=== PATIENT | female | born 1970 | race Caucasian/White ===

== ENCOUNTER 2019-10-17 12:37 | Emergency (ER) | payer SELFPAY ==
[2019-10-17 12:37] VITALS: BP 178/108; PULSE 113; RESP 20; TEMP 37.1; O2SAT 100
[2019-10-17 12:38] VITALS: BMI 33.4
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
--- NOTE | 2019-10-17 12:46 | PC.NURSE ---
Patient states she has pain in lower right sided back that radiates down right leg
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
[2019-10-17 13:45] VITALS: BP 153/106; PULSE 98; RESP 18; O2SAT 99
== END 2019-10-17 13:45 | disposition home or self-care (01) ==
LOC: ER 13:30
PROVIDERS: Emergency Provider Physician Assistant
DX: S39.012A Strain of muscle, fascia and tendon of lower back, initial encounter (principal); V89.2XXA Person injured in unspecified motor-vehicle accident, traffic, initial encounter; Y92.410 Unspecified street and highway as the place of occurrence of the external cause
CPT/HCPCS: 72100; 73502; 99281; 99282

== ENCOUNTER → 2021-05-04 09:37 | Outpatient (BNVA) | payer BC, SELFPAY | PROVIDERS: PCP Nurse Practitioner Family; Visit Provider Family Medicine Adult Medicine | DX: R11.2 Nausea with vomiting, unspecified (principal); E11.9 Type 2 diabetes mellitus without complications; I12.9 Hypertensive chronic kidney disease with stage 1 through stage 4 chronic kidney disease, or unspecified chronic kidney disease; N18.30 Chronic kidney disease, stage 3 unspecified; Z11.52 Encounter for screening for COVID-19; E89.0 Postprocedural hypothyroidism; E78.5 Hyperlipidemia, unspecified; K21.9 Gastro-esophageal reflux disease without esophagitis; Z68.23 Body mass index [BMI] 23.0-23.9, adult; Z71.89 Other specified counseling; Z20.822 Contact with and (suspected) exposure to COVID-19 | CPT/HCPCS: 80053; 80061; 82150; 83036; 83690; 84443; 85025; 87635 ==

== ENCOUNTER → 2021-06-29 10:17 | Outpatient (BNVA) | payer BC, SELFPAY | PROVIDERS: PCP Nurse Practitioner Family; Referring Provider Family Medicine Adult Medicine; Visit Provider Orthopaedic Surgery | DX: M54.2 Cervicalgia (principal); M54.50 Low back pain, unspecified | CPT/HCPCS: 72050; 72110 ==

== ENCOUNTER → 2022-02-23 08:35 | Outpatient (BNVA) | payer BC, SELFPAY | PROVIDERS: PCP Family Medicine Adult Medicine; Visit Provider Family Medicine Adult Medicine | DX: N18.30 Chronic kidney disease, stage 3 unspecified (principal); E89.0 Postprocedural hypothyroidism; I10 Essential (primary) hypertension; E11.9 Type 2 diabetes mellitus without complications; Z13.6 Encounter for screening for cardiovascular disorders; F41.9 Anxiety disorder, unspecified; F32.9 Major depressive disorder, single episode, unspecified; M54.41 Lumbago with sciatica, right side; M54.42 Lumbago with sciatica, left side; G89.29 Other chronic pain; J30.9 Allergic rhinitis, unspecified; L02.92 Furuncle, unspecified; K21.9 Gastro-esophageal reflux disease without esophagitis | CPT/HCPCS: 80053; 80061; 82627; 83036; 85025 ==

== ENCOUNTER 2022-04-22 12:55 | Outpatient (CLI) | payer BC, SELFPAY ==
--- NOTE | 2022-04-22 13:19 | US_ITS ---
WS: [id number] RENAL ULTRASOUND HISTORY: STAGE 3A CHRONIC KIDNEY DZ COMPARISON: None available. TECHNIQUE: 2-D and color Doppler imaging of the kidney submitted. Right kidney: 9.2 cm x 3.9 cm x 4.3 cm. Normal echogenicity with no hydronephrosis or mass. Left kidney: 9.1 cm x 3.8 cm x 4.0 cm. Normal size kidney. Mild cortical thinning upper pole of the LEFT kidney. The cortex measures 5 mm. N o hydronephrosis or mass. Aorta: Atherosclerosis. No aneurysm. Urinary Bladder: Nondistended urinary bladder. Bladder is very poorly visualized. Intraluminal thromb us or nodule not be evident. US/US renal BI* [id number] IMPRESSION: 1. No hydronephrosis. 2. Mild cortical thinning upper pole LEFT kidney. 3. Urinary bladder is not distended. Poorly visualized bladder.
[2022-04-22 14:10] LABS: Basophils % 0.5 %; Eosinophils % 0.3 %; Hematocrit 42.1 % (37.0-47.0); Hemoglobin 13.2 g/dL (11.5-15.3); Lymphocytes # 1.3 10^3/uL (0.8-4.8); Lymphocytes % 20.1 %; Mean Corpuscular HGB Conc 31.4 g/dL (30.0-36.0); Mean Corpuscular Hemoglobin 27.1 pg (28.0-34.0); Mean Corpuscular Volume 86.4 fl (81-99); Mean Platelet Volume 11.9 fL (7.4-10.4); Monocytes # 0.3 10^3/uL (0.2-0.9); Monocytes % 5.1 %; Neutrophils # 4.67 10^3/uL (1.8-7.7); Neutrophils % 73.8 %; Nucleated Red Blood Cells % 0 %; Platelet Count 247 10^3/cmm (130-400); Red Blood Count 4.87 10^6/uL (4.1-5.3); Red Cell Distribution Width 12.8 % (12.1-15.1); White Blood Count 6.3 10^3/uL (4.0-10.0)
[2022-04-22 14:30] LABS: Albumin Level 4.4 g/dL (3.5-5.2); Anion Gap 15.2 (5-19); Blood Urea Nitrogen 20 mg/dL (6-20); Calcium 10.1 mg/dL (8.5-10.5); Carbon Dioxide 29 mmol/L (22-29); Chloride 99 mmol/L (98-107); Glomerular Filtration Rate 58.2 mL/min (90-130); Glucose 96 mg/dL (65-115); Phosphorus 3.3 mg/dL (2.5-4.5); Potassium 4.2 mmol/L (3.5-5.1); Sodium 139 mmol/L (136-145)
[2022-04-22 14:39] LABS: Creatinine Urine, Random 100 mg/dL (28-217)
[2022-04-22 14:55] LABS: Microalbum Creatinine Ratio Ur 710 mg/dL (0-20); Microalbumin Random Urine 71 ug/dL (0-20)
[2022-04-22 15:17] LABS: Parathyroid Hormone 46.4 pg/mL (15-65)
== END 2022-04-22 12:56 | disposition home or self-care (01) ==
PROVIDERS: PCP Family Medicine Adult Medicine; Visit Provider Internal Medicine Nephrology
DX: N18.31 Chronic kidney disease, stage 3a (principal)
CPT/HCPCS: 76770; 80069; 82044; 82310; 83970; 85025

== ENCOUNTER 2022-06-12 11:38 | Emergency (ER) | payer BC, SELFPAY ==
[2022-06-12 11:44] VITALS: BMI 24.3
[2022-06-12 11:50] VITALS: BP 155/96; PULSE 104; RESP 17; TEMP 36.4; O2SAT 100
[2022-06-12] MEDS: ondansetron 2 mg/ML SDV 2 mL 8 MG IVP (12:12)
[2022-06-12] MEDS: sodium chloride 0.9% 1,000 ML 999 ML IV (12:13)
--- NOTE | 2022-06-12 12:20 | CTR_ITS ---
PROCEDURE INFORMATION: Exam: CT Abdomen And Pelvis With Contrast Exam date and time: 06/12/2022 12:41 PM Age: 52 years old Clinical indication: Abdominal pain; Localized; Left lower quadrant (llq); Additional info: Llq abdominal pain, TECHNIQUE: Imaging protocol: Computed tomography of the abdomen and pelvis with contrast. Radiation optimization: All CT scans at this facility use at least one of these dose optimization techniques: automated exposure control; mA and/or kV adjustment per patient size (includes targeted exams where dose is matched to clinical indication); or iterative reconstruction. Contrast material: OMNI 350; Contrast volume: 100 ml; Contrast route: INTRAVENOUS (IV); COMPARISON: CT abdomen pelvis w con* [id number] 07/23/2018 11:48 AM RADIATION DOSE METRICS: Total DLP (mGy-cm): 222.28 FINDINGS: Lungs: No acute findings within the included lung bases. Liver: Normal. No mass. Gallbladder and bile ducts: Normal. No calcified stones. No ductal dilation. Pancreas: Normal. No ductal dilation. Spleen: Normal. No splenomegaly. Adrenal glands: Normal. No mass. Kidneys and ureters: No hydronephrosis. There are few bilateral subcentimeter hypodensities which are too small to characterize but statistically likely represent cysts. No mass. Stomach and bowel: Partial sigmoid resection. Sigmoid diverticulosis without active diverticulitis. Postsurgical changes of the ventral abdominal wall again with partially protruding loop small bowel but no evidence of with small hernia containing short-segments of small bowel. No evidence of obstruction or incarceration. Appendix: No evidence of appendicitis. Intraperitoneal space: No free air. No significant fluid collection. Vasculature: Unremarkable. No abdominal aortic aneurysm. Lymph nodes: Unremarkable. No enlarged lymph nodes. Urinary bladder: Unremarkable as visualized. Reproductive: Lobular cystic left adnexal mass measuring 6.0 x 8.0 x 7.3 cm with numerous thin septa with apparent enhancement. This is new since July 23, 2018 comparison. Normal appearance of the uterus and right adnexa. Bones/joints: Unremarkable. No acute fracture. Soft tissues: Unremarkable. CT/CT abdomen pelvis w con* [id number] IMPRESSION: 1. 6.0 x 8.0 x 7.3 cm complex cystic left adnexal mass containing multiple thin septa. Differential includes ovarian carcinoma as well as benign etiologies. Recommend referral to gynecology for evaluation. 2. Partial sigmoid resection. Scattered sigmoid diverticula with no evidence of active diverticulitis. 3. Postsurgical changes of the ventral abdominal wall, again with short segment of partially protruding small bowel but no obstruction or incarceration. 4. Other chronic and incidental findings as described.
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
[2022-06-12 12:27] VITALS: BP 177/113; PULSE 100; O2SAT 97
[2022-06-12 12:33] LABS: Basophils % 0.3 %; Eosinophils % 0.1 %; Hematocrit 45.7 % (37.0-47.0); Hemoglobin 14.6 g/dL (11.5-15.3); Lymphocytes # 0.7 10^3/uL (0.8-4.8); Mean Corpuscular HGB Conc 31.9 g/dL (30.0-36.0); Mean Corpuscular Volume 87.5 fl (81-99); Mean Platelet Volume 13.3 fL (7.4-10.4); Monocytes # 0.4 10^3/uL (0.2-0.9); Monocytes % 3.1 %; Neutrophils # 10.18 10^3/uL (1.8-7.7); Neutrophils % 90.1 %; Nucleated Red Blood Cells % 0 %; Platelet Count 234 10^3/cmm (130-400); Red Blood Count 5.22 10^6/uL (4.1-5.3); Red Cell Distribution Width 13.3 % (12.1-15.1); White Blood Count 11.3 10^3/uL (4.0-10.0)
[2022-06-12] MEDS: iohexol 350 mg/mL 100 mL Btl IV (12:50)
[2022-06-12 12:59] LABS: Alanine Aminotransferase 27 U/L (0-33); Alkaline Phosphatase 117 U/L (35-105); Blood Urea Nitrogen 22 mg/dL (6-20); Calcium 11.7 mg/dL (8.5-10.5); Carbon Dioxide 21 mmol/L (22-29); Chloride 97 mmol/L (98-107); Globulin 2.7 g/dL (1.3-4.6); Glomerular Filtration Rate 52.2 mL/min (90-130); Glucose 161 mg/dL (65-115); Lipase 52 U/L (13-60); Osmolality Calculated 291 mOsm/kg (285-295); Sodium 137 mmol/L (136-145); Total Bilirubin 0.7 mg/dL (0.15-1.2); Total Protein 7.7 g/dL (6.6-8.7)
[2022-06-12 13:00] VITALS: BP 171/93; PULSE 116; O2SAT 100
[2022-06-12 13:00] LABS: Anion Gap 23.7 (5-19); Aspartate Amino Transferase 24 U/L (0-32); Lactate (Lactic Acid level) 1.6 mmol/L (0.5-2.2); Potassium 4.7 mmol/L (3.5-5.1)
[2022-06-12 13:30] VITALS: BP 153/96; O2SAT 96
[2022-06-12] MEDS: acetaminophen 325 mg Tablet 975 MG PO (14:22)
[2022-06-12] MEDS: ketorolac 30 mg/mL INJ 15 MG IVP (14:22)
[2022-06-12 14:42] LABS: Add Urine Microscopic? YES; Bilirubin Urine Neg (Negative); Blood Urine Neg (Negative); Glucose Urine UA 4+ (Normal); Ketones Urine 2+ (Negative); Leukocyte Esterase Urine Negative (Negative); Nitrate Urine Negative (Negative); Protein Urine 1+ (Negative); Urine Appearance Clear (CLEAR); Urine Color Yellow (Yellow); Urobilinogen Urine Norm (Negative); pH Urine 6 (5-7)
[2022-06-12 14:44] LABS: Bacteria Urine TRACE /hpf
[2022-06-12 14:45] LABS: Add Urine Culture? No
[2022-06-12 15:00] VITALS: BP 162/102; PULSE 98; O2SAT 99
[2022-06-12 15:43] LABS: Base Excess VBG -2.4 mmol/L (-3.0-3.0); Blood Gas Operator Identificat GD; Blood Gas Sample Site Not specified; Blood Gas Sample Type Venous; HCO3 VBG 21.3 mmol/L (24-28); PCO2 VBG 32.8 mmHg (41-51); PO2 VBG 53.7 mmHg (25-40); Venous Blood Gas Hematocrit 43.9 % (37-47); pH VBG 7.42 (7.32-7.42)
[2022-06-12 16:22] VITALS: BP 161/88; PULSE 110; O2SAT 100
--- NOTE | 2022-06-13 15:47 | DCPLANNER ---
Addendum entered by Francine Degroot 07/14/22 08:00: Patient had a follow [facility] appointment for [facility] with [facility] - patient did attend appointment. Original Note: nurse outreach case manager had message to schedule a follow up appointment for patient with [facility]. nurse outreach case manager sent patients information to the front office staff at [facility]. Patients information will be printed and reviewed. Clinic will call patient with appointment information.
== END 2022-06-12 16:24 | disposition home or self-care (01) ==
PROVIDERS: Emergency Provider Emergency Medicine; PCP Family Medicine Adult Medicine
DX: N83.292 Other ovarian cyst, left side (principal)
CPT/HCPCS: 74177; 80053; 81001; 82803; 83605; 83690; 85025; 96361; 96374; 96375; 99285; J1885; J2405; J7030; Q9967

== ENCOUNTER → 2022-06-20 15:39 | Outpatient (BNVA) | payer BC, SELFPAY | PROVIDERS: PCP Family Medicine Adult Medicine; Visit Provider Obstetrics & Gynecology | DX: N83.8 Other noninflammatory disorders of ovary, fallopian tube and broad ligament (principal) | CPT/HCPCS: 36415 ==

== ENCOUNTER 2022-09-22 09:28 | Emergency (ER) | payer OTHER, SELFPAY ==
[2022-09-22] VITALS (8 sets, daily range): BP systolic 153–154; BP diastolic 91–93; PULSE 83; RESP 25; O2SAT 91–100; BMI 25.5
--- NOTE | 2022-09-22 09:31 | ECG_ITS ---
[facility] Test Date: 2022-09-22 Pat Name: Margie Gonzales Department: Room: Gender: Female Armature Bander: : 1970 Requested By: Allen Perez Order Number: [id number] Yared MD: Vonda Knapp M.D. Measurements Intervals [place] Rate: 86 P: 67 VA: 151 QRS: 52 QRSD: 78 T: 71 QT: 352 QTc: 421 Interpretive Statements SINUS RHYTHM Compared to ECG 07/23/2018 13:40:43 Sinus tachycardia no longer present Electronically Signed On 09-22-2022 12:54:03 EYEGLASS CUTTER by Vonda Knapp M.D. [id number]
--- NOTE | 2022-09-22 09:32 | XR_ITS ---
WS: [id number] PORTABLE CHEST HISTORY: dyspnea/cough COMPARISON: None available. Lungs are clear and well expanded. No pleural effusion or pneumothorax. Cardiac size: Normal. Mediastinum/Aorta: Normal mediastinum. No osseous abnormality seen. XR/XR chest 1V portable [id number] IMPRESSION: Unremarkable portable chest.
[2022-09-22 10:40] LABS: Basophils % 0.3 %; Eosinophils # 0.1 10^3/uL (0.0-0.8); Eosinophils % 0.9 %; Hematocrit 33.7 % (37.0-47.0); Hemoglobin 10.5 g/dL (11.5-15.3); Lymphocytes # 1.1 10^3/uL (0.8-4.8); Lymphocytes % 17.5 %; Mean Corpuscular HGB Conc 31.2 g/dL (30.0-36.0); Mean Corpuscular Hemoglobin 27.2 pg (28.0-34.0); Mean Corpuscular Volume 87.3 fl (81-99); Mean Platelet Volume 11.3 fL (7.4-10.4); Monocytes # 0.4 10^3/uL (0.2-0.9); Neutrophils # 4.74 10^3/uL (1.8-7.7); Nucleated Red Blood Cells % 0 %; Platelet Count 264 10^3/cmm (130-400); Red Blood Count 3.86 10^6/uL (4.1-5.3); White Blood Count 6.3 10^3/uL (4.0-10.0)
--- NOTE | 2022-09-22 10:43 | CT_ITS ---
WS: [id number] CT NECK WITH CONTRAST HISTORY: hoarse voice, globus sensation 2 months after being intubate TECHNIQUE: Contiguous 5 mm axial images are performed through the neck with intravenous contrast. Sag ittal and coronal reformats are also submitted. All CT scans at [facility] use at least one o f these dose optimization techniques: automated exposure control; mA and/or kV adjustment per patient size (includes targeted exams where dose is matched to clinical indication); or iterative reconstruc tion. CONTRAST: CONTRAST: Omnipaque 350; 80 mL IV. DLP: 182.95 mGy.cm COMPARISON: None available. There is a significant stenosis and soft tissue nodule with enhancement involving the larynx at the l evel of the cricoid cartilage. Soft tissue nodule measures 10 x 5 mm and extends into the airway from the RIGHT lateral larynx. Residual airway measures 6 to 7 mm. Visualized RIGHT retropharynx and the oral pharynx are negative. Vocal cords are negative. Torus tubarius and fossa of Rosenmuller and parapharyngeal fat are normal. No significant lymphadenopathy is identified. Thyroid gland is surgically absent. No recurrent mass or lymph nodes at the thyroid bed. Large anterior bridging osteophytes encroach towards the airway with mild mass effect. These may be c ontributing to the sensation of dysphagia. Visualized portions of the skull base demonstrate no abnormalities. Orbits and globes are within norm al limits. No soft tissue masses. Visualized paranasal sinuses and mastoid air cells are normal. Lung apices are clear. CT/CT neck w con* [id number] IMPRESSION: 1. 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 There is a soft tissue nodule measuring 10 x 5 mm encroaching into the larynx from the RIG HT lateral cricoid. 2. Surgically absent thyroid. 3. No adenopathy. 4. Additional large vertebral body osteophytes encroaching into the supraglott ic airway. May be contributing to the sensation of dysphagia. Notified Allen Goddard DO at 09/22/2022 12:21 PM.
--- NOTE | 2022-09-22 10:46 | W.ED.SOB ---
HPI - SOB/Dyspnea General: Chief Complaint: Shortness of Breath/Dyspnea Stated Complaint: sob Time Seen by Provider: 09/22/22 09:31 Source: patient Mode of arrival: ambulatory History of Present Illness: HPI Narrative: 52-year-old female who presents to the emergency room complaining of difficulty speaking. She relates it to when she was intubated about 2 months ago. She subsequently had an abdominal surgery there was some complications during the surgery and evidently required bowel resection. She states she her voice has been hoarse ever since that episode but then 2 days ago seem to worsen. She is able to vocalize but is very hoarse she has had some clear mucus no hemoptysis. She is not in any respiratory distress on arrival. Sats 100% on room air MD elicited complaint: shortness of breath and cough Onset (ago): month(s) (2) Timing: constant Severity: mild Exacerbating factors: nothing Relieving factors: nothing Known history of: COPD Associated symptoms: Deny abdominal pain, chest congestion, chest pain, cough, diaphoresis, dizziness, extremity pain, fever(s), hemoptysis, lightheadedness, myalgias, nausea, orthopnea, palpitations, paresthesias, polydipsia, polyuria, rash, sense of impending doom, syncope or vomiting Treatment prior to arrival: none Review of Systems Const: Denies: fever(s), chills, fatigue, malaise or diaphoresis ENMT: Reports: throat pain and hoarseness; Denies: ear or mastoid pain, nasal discharge or nasal congestion Card: Denies: chest pain, palpitations, lightheadedness, syncope or orthopnea Resp: Reports: dyspnea; Denies: productive cough, non-productive cough, wheezing, hemoptysis or chest congestion GI: Denies: abdominal pain, nausea or vomiting : Denies: flank pain, difficulty voiding, dysuria, urinary frequency or urinary urgency Musc: Denies: extremity pain Skin/Breast: Denies: rash or pruritus Neuro: Denies: dizziness Endo: Denies: polyuria or polydipsia PFS ED PFSH: Medical History Allergic rhinitis due to allergen Anxiety and depression Boils of multiple sites Chronic low back pain with bilateral sciatica CKD (chronic kidney disease) stage 3, GFR 30-59 ml/min Constipation Diabetes type 2, controlled Dyslipidemia (high LDL; low HDL) GERD (gastroesophageal reflux disease) Hearing loss Hoarseness or changing voice Hx of thyroid cancer Hypertension Hypothyroidism, postsurgical thyroidectomy Aug 2020 Inspiratory stridor Postmenopausal atrophic vaginitis Vitamin B 12 deficiency Surgical History H/O dilation and curettage x7 H/O laparoscopy H/O ultrasound guided needle biopsy muscle and skin biopsies History of colon resection Hx of section Hx of hernia repair Status post removal of thyroid nodule Family History Mother Chronic kidney disease (CKD) Hyperlipidemia Grandmother CAD (coronary artery disease) maternal Hyperlipidemia maternal Heart disease maternal Colon cancer maternal, 60's Grandfather Diabetes paternal Family/Other Diabetes maternal great aunt Hyperlipidemia maternal side Denies family history of Ovarian cancer Breast cancer Anesthesia complication Bleeding disorder Hypertension Uterine cancer Thyroid condition Stroke Social History Smoking and tobacco status: former smoker Smoking risk assessment/counseling performed?: No Alcohol intake: current Alcohol intake frequency: holidays/special occasions only Desire information about alcohol rehabilitation?: No Counseling given: No Desire information about substance/drug rehabilitation?: No Counseling given: No Adopted: No Caregiver/support person: No Lives independently: Yes Marital status: Current gender identity: Female Female Reproductive History: Date of last menstrual period: 10/06/19 Physical Exam Const: GENERAL APPEARANCE: cooperative and comfortable ORIENTATION/CONSCIOUSNESS: Yes awake, Yes oriented to person, Yes oriented to place and Yes oriented to time HENMT: COMMON NORMALS: normocephalic, atraumatic and hearing grossly normal bilaterally HEAD & SCALP: normocephalic and atraumatic Neck/C-Spine: COMMON NORMALS: full ROM, no lymphadenopathy, supple and no JVD Lymph: LYMPHATIC: no lymphadenopathy noted and no lymphedema noted Resp: COMMON NORMALS: normal respiratory effort, No retractions, No use of accessory muscles and clear to auscultation bilaterally AUSCULTATION: clear to auscultation bilaterally Cardio: COMMON NORMALS: no JVD, regular rate, regular rhythm and No murmurs present (Cardio) RATE: regular rate RHYTHM: regular rhythm GI: COMMON NORMALS: Soft to palpation and No hepatosplenomegaly present AUSCULTATION: Yes normoactive bowel sounds PALPATION: Yes Soft to palpation, No Tenderness to palpation present (GI), No Guarding due to palpation present (GI) and Yes No hepatosplenomegaly present Extremity: COMMON NORMALS: normal to inspection, capillary refill normal, no clubbing, cyanosis or edema, no calf tenderness and no pedal edema Neuro: SENSORIUM/ORIENTATION: Yes oriented to person, Yes oriented to place and Yes oriented to time Skin: COMMON NORMALS: no rashes or lesions noted GENERAL SKIN EXAM: no rashes or lesions noted Course Vital Signs: Vital signs: Vital Signs Pulse Rate 83 09/22/22 10:03 Respiratory Rate 25 H 09/22/22 10:03 Blood Pressure 154/91 09/22/22 14:00 Pulse Oximetry 98 09/22/22 14:00 Oxygen Delivery Me thod 09/22/22 14:00 MDM - SOB/Dyspnea Medical Decision Making Patient presents with some stridor. The soft tissue CT of the neck shows polyp that is 10 x 5 mm that is compromising the airway unfortunately do not have any ENT coverage will transfer patient for ENT evaluation discussed with ENT on-call at [facility] will transfer to the ER there. Patient stable while in the emergency room facility will be transferred via ambulance. Medical Records I reviewed the patient's medical records. Lab Data I reviewed the patient's lab results. 09/22/22 10:35 09/22/22 10:35 Labs/Radiology: Radiology Impressions Chest X-Ray 09/22/22 09:32 IMPRESSION: Unremarkable portable chest. Neck CT 09/22/22 10:43 IMPRESSION: 1. 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 There is a soft tissue nodule measuring 10 x 5 mm encroaching into the larynx from the RIGHT lateral cricoid. 2. Surgically absent thyroid. 3. No adenopathy. 4. Additional large vertebral body osteophytes encroaching into the supraglottic airway. May be contributing to the sensation of dysphagia. Notified Allen Goddard DO at 09/22/2022 12:21 PM. Laboratory Results WBC 6.3 10^3/uL (4.0-10.0) 09/22/22 10:35 RBC 3.86 10^6/uL (4.1-5.3) L 09/22/22 10:35 Hgb 10.5 g/dL (11.5-15.3) L 09/22/22 10:35 Hct 33.7 % (37.0-47.0) L 09/22/22 10:35 MCV 87.3 fl (81-99) 09/22/22 10:35 MCH 27.2 pg (28.0-34.0) L 09/22/22 10:35 MCHC 31.2 g/dL (30.0-36.0) 09/22/22 10:35 RDW 13.0 % (12.1-15.1) 09/22/22 10:35 Plt Count 264 10^3/cmm (130-400) 09/22/22 10:35 MPV 11.3 fL (7.4-10.4) H 09/22/22 10:35 Neut % (Auto) 75.0 % 09/22/22 10:35 Lymph % (Auto) 17.5 % 09/22/22 10:35 [place] % (Auto) 6.0 % 09/22/22 10:35 Eos % (Auto) 0.9 % 09/22/22 10:35 Baso % (Auto) 0.3 % 09/22/22 10:35 Neut # (Auto) 4.74 10^3/uL (1.8-7.7) 09/22/22 10:35 Lymph # (Auto) 1.1 10^3/uL (0.8-4.8) 09/22/22 10:35 [place] # (Auto) 0.4 10^3/uL (0.2-0.9) 09/22/22 10:35 Eos # (Auto) 0.1 10^3/uL (0.0-0.8) 09/22/22 10:35 Baso # (Auto) 0.0 10^3/uL (0.0-0.1) 09/22/22 10:35 Nucleated RBC % (auto) 0 % 09/22/22 10:35 Nucleated RBCs # 0.0 /100WBC 09/22/22 10:35 Sodium 139 mmol/L (136-145) 09/22/22 10:35 Potassium 4.1 mmol/L (3.5-5.1) 09/22/22 10:35 Chloride 100 mmol/L (98-107) 09/22/22 10:35 Carbon Dioxide 26 mmol/L (22-29) 09/22/22 10:35 Anion Gap 17.1 (5-19) 09/22/22 10:35 BUN 20 mg/dL (6-20) 09/22/22 10:35 Creatinine 1.0 mg/dL (0.5-0.9) H 09/22/22 10:35 GFR Calculation 58.2 mL/min (90-130) L 09/22/22 10:35 Glucose 161 mg/dL (65-115) H 09/22/22 10:35 Calculated Osmolality 294 mOsm/kg (285-295) 09/22/22 10:35 Calcium 10.2 mg/dL (8.5-10.5) 09/22/22 10:35 Total Bilirubin 0.2 mg/dL (0.15-1.2) 09/22/22 10:35 AST 15 U/L (0-32) 09/22/22 10:35 ALT 14 U/L (0-33) 09/22/22 10:35 Alkaline Phosphatase 81 U/L (35-105) 09/22/22 10:35 Total Protein 7.3 g/dL (6.6-8.7) 09/22/22 10:35 Albumin 4.5 g/dL (3.5-5.2) 09/22/22 10:35 Globulin 2.8 g/dL (1.3-4.6) 09/22/22 10:35 Group A Strep Rapid Negative (Negative) 09/22/22 10:58 Discharge Plan Discharge Patient Disposition: Transfer to ED Clinical Impression: Laryngeal polyp, Inspiratory stridor Condition: Stable Prescriptions: No Action levothyroxine 175 mcg capsule 175 mcg PO DAILY Qty: 90 3RF buspirone 15 mg tablet 15 mg PO BID Qty: 60 5RF All Day Allergy (cetirizine) 10 mg capsule 10 mg PO DAILY PRN (Reason: allergy symptoms) Qty: 90 2RF doxycycline hyclate 100 mg capsule 100 mg PO BID Qty: 90 1RF Jardiance 25 mg tablet 25 mg PO DAILY Qty: 60 5RF omeprazole 40 mg capsule,delayed release(DR/EC) 40 mg PO BID Qty: 60 5RF ondansetron 8 mg tablet,disintegrating 8 mg translingual Q8H PRN (Reason: nausea and vomiting) Qty: 60 1RF topiramate 50 mg tablet See Rx Instructions .ROUTE .COMPLEX Qty: 60 5RF Dose Instruction: TAKE 1 TABLET BY MOUTH TWO TIMES A DAY FOR CHRONIC PAIN Rx Instructions: TAKE 1 TABLET BY MOUTH TWO TIMES A DAY FOR CHRONIC PAIN (DME) One touch test strips Ultra 2 See Rx Instructions .Route .MEDSUPPLY Qty: 1 11RF Rx Instructions: As directed mecobalamin (vitamin B12) 10,000 mcg recon soln 1,000 mcg SUBCUT .monthly 300 Days Qty: 1 1RF sertraline 200 mg capsule 200 mg PO DAILY Qty: 30 5RF Victoza 3-Cristian 0.6 mg/0.1 mL (18 mg/3 mL) pen injector 1.8 mg SUBCUT DAILY Qty: 9 5RF Rx Instructions: 0.6 mg (0.1 ml) inj SC for 7 days, then 1.2 mg (0.2 ml) for 7 days then 1.8 mg (0.3ml) daily lisinopril 10 mg tablet 10 mg PO DAILY Qty: 30 5RF baclofen 10 mg tablet 10 mg PO TID Qty: 90 5RF hydrocodone-acetaminophen 10-325 mg tablet 1 tab PO Q8H PRN (Reason: pain, severe) 30 Days Qty: 90 0RF Rx Instructions: refill on or after 30 day interval docusate sodium 250 mg capsule 250 mg PO TID Referrals: Beck Sellers MD [Primary Care Provider] - Coding Level of Care Code ED Boiler Engineer for Chg Fwd Exam Comprehensive
[2022-09-22 11:12] LABS: Rapid Strep A Test Negative (Negative)
[2022-09-22 11:13] LABS: Alanine Aminotransferase 14 U/L (0-33); Albumin Level 4.5 g/dL (3.5-5.2); Alkaline Phosphatase 81 U/L (35-105); Anion Gap 17.1 (5-19); Aspartate Amino Transferase 15 U/L (0-32); Blood Urea Nitrogen 20 mg/dL (6-20); Calcium 10.2 mg/dL (8.5-10.5); Carbon Dioxide 26 mmol/L (22-29); Chloride 100 mmol/L (98-107); Globulin 2.8 g/dL (1.3-4.6); Glomerular Filtration Rate 58.2 mL/min (90-130); Glucose 161 mg/dL (65-115); Osmolality Calculated 294 mOsm/kg (285-295); Potassium 4.1 mmol/L (3.5-5.1); Sodium 139 mmol/L (136-145); Total Bilirubin 0.2 mg/dL (0.15-1.2); Total Protein 7.3 g/dL (6.6-8.7)
[2022-09-22] MEDS: LORazepam 2 mg/mL INJ 1 mL IVP (11:19)
[2022-09-22] MEDS: iohexol 350 mg/mL 500 mL Btl (per mL) IV (11:38)
[2022-09-22] MEDS: dexamethasone 10 mg/mL INJ IVP (12:45)
== END 2022-09-22 13:00 ==
PROVIDERS: Emergency Provider Family Medicine; PCP Family Medicine Adult Medicine
DX: J38.1 Polyp of vocal cord and larynx (principal); R06.1 Stridor
CPT/HCPCS: 36415; 70491; 71045; 80053; 85025; 87081; 87880; 93005; 96374; 96375; 99285; J1100; J2060; Q9967

== ENCOUNTER → 2022-12-05 15:47 | Outpatient (BNVA) | payer OTHER, SELFPAY | PROVIDERS: PCP Family Medicine Adult Medicine; Visit Provider Family Medicine Adult Medicine | DX: E11.9 Type 2 diabetes mellitus without complications (principal); L65.9 Nonscarring hair loss, unspecified | CPT/HCPCS: 82672; 83036; 84144; 84403 ==

== ENCOUNTER 2022-12-24 10:48 | Emergency (ER) | payer OTHER, SELFPAY ==
--- NOTE | 2022-12-24 10:53 | XRR_ITS ---
PROCEDURE INFORMATION: Exam: XR Right Knee Exam date and time: 12/24/2022 11:09 AM Age: 52 years old Clinical indication: Injury or trauma; Fall; Blunt trauma; Knee; Right; Additional info: Fall with right knee pain TECHNIQUE: Imaging protocol: Radiologic exam of the right knee. Views: 3 views. Total images: 1 COMPARISON: No relevant prior studies available. FINDINGS: Bones/joints: Bony irregularity of the proximal right fibula may represent sequela of remote trauma. No acute fracture nor subluxation. No osseous erosion nor periosteal reaction. Soft tissues: Normal. XR/XR knee RT 3V* [id number] IMPRESSION: No acute osseous pathology.
[2022-12-24 11:04] VITALS: BP 147/86; PULSE 89; RESP 18; TEMP 36.7; O2SAT 100
--- NOTE | 2022-12-24 12:03 | XRR_ITS ---
PROCEDURE INFORMATION: Exam: XR Lumbosacral Spine Exam date and time: 12/24/2022 12:21 PM Age: 52 years old Clinical indication: Injury or trauma; Fall; Blunt trauma (contusions or hematomas); Additional info: Fall injury with back pain TECHNIQUE: Imaging protocol: Radiologic exam of the lumbosacral spine. Views: 2 or 3 views. Total images: 417 COMPARISON: CR XR lumbar spine min 4V [id number] 06/29/2021 10:23 AM FINDINGS: Bones/joints: Loss of lumbar lordosis. Vertebral body heights are maintained. No evidence of spondylolysis nor spondylolisthesis. Multilevel degenerative disc disease with mild disc space narrowing and osteophyte formation.These findings are stable when compared to the prior exam. Soft tissues: Unremarkable. XR/XR lumbar spine 2-3V* [id number] IMPRESSION: 1. Multilevel degenerative disc disease with mild disc space narrowing and osteophyte formation.These findings are stable when compared to the prior exam. 2. Degenerative changes as described above but no acute pathology detected.
--- NOTE | 2022-12-24 12:07 | ED_ITS ---
HPI - Extremity Problem General: Chief complaint: Extremity Injury, Lower Stated complaint: fall right knee injury Time Seen by Provider: 12/24/22 11:17 History of Present Illness: Patient is a 52-year-old female comes to the ED with fall injury. Patient says injury occurred yesterday. She was walking her [employer] dog on the leash. The dog then ran off and pulled patient off balance causing her to fall against truck and onto the concrete pavement. She states that she hit her right knee on pavement and also hit her lower back on truck and pavement as well. She is now having 8 out of 10 pain in her right knee and in the lower back. Associated symptoms: Deny chest pain, fever(s) or rash Review of Systems Const: Denies: fever(s), chills or fatigue Eyes: Denies: change in vision or eye discomfort ENMT: Denies: throat pain, odynophagia, nasal discharge or nasal congestion Card: Denies: chest pain, palpitations, edema, swelling of feet/ankles, dyspnea on exertion or orthopnea Resp: Denies: dyspnea, productive cough or non-productive cough GI: Denies: abdominal pain, nausea, vomiting, diarrhea, constipation or hematochezia : Denies: flank pain, dysuria or hematuria Musc: Reports: back pain and extremity pain (Right knee); Denies: neck pain or extremity swelling Skin/Breast: Denies: rash or new lesions Neuro: Denies: headache(s), numbness in extremities or weakness in extremities PFS ED PFSH: Medical History (Updated 12/24/22 @ 12:55 by RAFEAL Brian) Abdominal pain determined by examination Allergic rhinitis due to allergen Anxiety and depression Boils of multiple sites Chronic low back pain with bilateral sciatica CKD (chronic kidney disease) stage 3, GFR 30-59 ml/min Constipation Diabetes type 2, controlled Dyslipidemia (high LDL; low HDL) GERD (gastroesophageal reflux disease) 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 Hearing loss Hx of ovarian cyst Hx of thyroid cancer Hypertension Hypothyroidism, postsurgical thyroidectomy Aug 2020 Infection of obstetric surgical wound, deep incisional site Inspiratory stridor Ovarian mass, left CT on 06/20/2022 with 6 cm x 8 cm x 7.3 cm left cystic mass, surg 07/06/2022 Postmenopausal atrophic vaginitis Sleeping excessive Traumatic hair loss Vitamin B 12 deficiency Surgical History (Updated 10/27/22 @ 16:03 by Beck Sellers MD) H/O dilation and curettage x7 H/O laparoscopy H/O ultrasound guided needle biopsy muscle and skin biopsies History of colon resection 2014 resection after a history of 32 benign colon polyps. Hx of section Hx of hernia repair Hx of hysterectomy Status post removal of thyroid nodule Family History Mother Chronic kidney disease (CKD) Hyperlipidemia Grandmother CAD (coronary artery disease) maternal Hyperlipidemia maternal Heart disease maternal Colon cancer maternal, 60's Grandfather Diabetes paternal Family/Other Diabetes maternal great aunt Hyperlipidemia maternal side Denies family history of Ovarian cancer Breast cancer Anesthesia complication Bleeding disorder Hypertension Uterine cancer Thyroid condition Stroke Social History Smoking and tobacco status: former smoker Smoking risk assessment/counseling performed?: No Alcohol intake: current Alcohol intake frequency: holidays/special occasions only Desire information about alcohol rehabilitation?: No Counseling given: No Substance/Drug Use: never Desire information about substance/drug rehabilitation?: No Counseling given: No Adopted: No Caregiver/support person: No Lives independently: Yes Marital status: Current gender identity: Female Physical Exam Const: COMMON NORMALS: patient oriented x3 HENMT: COMMON NORMALS: normocephalic HEAD & SCALP: normocephalic MOUTH: Normal oral and palatal mucosa present THROAT: posterior oropharynx normal and uvula midline Neck/C-Spine: COMMON NORMALS: supple GENERAL: Yes normal visual inspection Resp: COMMON NORMALS: normal respiratory effort, No retractions, No use of accessory muscles and clear to auscultation bilaterally AUSCULTATION: clear to auscultation bilaterally Cardio: COMMON NORMALS: regular rate, regular rhythm, S1 normal heart sound present, S2 normal heart sound present, No gallops present (Cardio), No clicks present (Cardio), No murmurs present (Cardio) and Peripheral pulses 2+ throughout RATE: regular rate RHYTHM: regular rhythm HEART SOUNDS: S1 normal heart sound present and S2 normal heart sound present PERIPHERAL PULSES: Peripheral pulses 2+ throughout GI: COMMON NORMALS: Normal to inspection, nondistended, normoactive bowel sounds present, Soft to palpation, non-tender and no masses PALPATION: Yes Soft to palpation : COMMON NORMALS: Yes no CVA tenderness BLADDER/KIDNEY EXAM: Yes no CVA tenderness Back/Pelvis: COMMON NORMALS: no CVA tenderness Extremity: COMMON NORMALS: normal to inspection and full ROM Neuro: COMMON NORMALS: patient oriented x3 GAIT: Yes Normal gait present Skin: GENERAL SKIN EXAM: dry skin Course Vital Signs: Vital signs: Vital Signs Temperature 98.0 F 12/24/22 11:04 Pulse Rate 83 12/24/22 13:16 Respiratory Rate 13 12/24/22 13:16 Blood Pressure 137/87 12/24/22 13:16 Pulse Oximetry 100 12/24/22 13:16 Oxygen Delivery Me thod Room Air 12/24/22 13:16 MDM - Extremity (Nontraumatic) Medical Decision Making Patient is a 52-year-old female comes to the ED with fall injury. Patient says injury occurred yesterday. She was walking her [employer] dog on the leash. The dog then ran off and pulled patient off balance causing her to fall against truck and onto the concrete pavement. She states that she hit her right knee on pavement and also hit her lower back on truck and pavement as well. She is now having 8 out of 10 pain in her right knee and in the lower back. vitals are stable. Exam is benign and right knee has no swelling, ecchymosis. normal range of motion. xray of right knee shows no acute findings. xray of lumbar spine shows degenerative disc disease but no fractures. pt diagnosed with lumbar Degenerative disc disease and right knee pain. sent home with prescription of meloxicam and muscle relaxer. follow up with pcp in 5-7 days. Lab Data Radiology Impressions Knee X-Ray 12/24/22 10:53 IMPRESSION: No acute osseous pathology. Lumbar Spine X-Ray 12/24/22 12:03 IMPRESSION: 1. Multilevel degenerative disc disease with mild disc space narrowing and osteophyte formation.These findings are stable when compared to the prior exam. 2. Degenerative changes as described above but no acute pathology detected. Discharge Plan Discharge Patient Disposition: Home Clinical Impression: DDD (degenerative disc disease), lumbar Knee pain, right Qualifiers: Chronicity: acute Qualified Code(s): M25.561 - Pain in right knee Condition: Stable Prescriptions: New meloxicam 15 mg tablet 15 mg PO DAILY PRN (Reason: pain) Qty: 20 0RF methocarbamol 750 mg tablet 750 mg PO TID PRN (Reason: Back muscle spasms and pain) Qty: 20 0RF No Action buspirone 15 mg tablet 15 mg PO BID Qty: 60 5RF All Day Allergy (cetirizine) 10 mg capsule 10 mg PO DAILY PRN (Reason: allergy symptoms) Qty: 90 2RF doxycycline hyclate 100 mg capsule 100 mg PO BID Qty: 90 1RF omeprazole 40 mg capsule,delayed release(DR/EC) 40 mg PO BID Qty: 60 5RF fluticasone propionate [Flovent HFA] 44 mcg/actuation HFA aerosol inhaler 2 puff inhalation BID Rx Instructions: administer with spacer clotrimazole-betamethasone 1-0.05 % cream 1 applic topical BID Qty: 45 0RF orphenadrine citrate 100 mg tablet extended release 100 mg PO BID Qty: 60 5RF (DME) One touch test strips Ultra 2 See Rx Instructions .Route .MEDSUPPLY Qty: 1 11RF Rx Instructions: As directed mecobalamin (vitamin B12) 10,000 mcg recon soln 1,000 mcg SUBCUT .monthly 300 Days Qty: 1 1RF sertraline 200 mg capsule 200 mg PO DAILY Qty: 30 5RF lisinopril 10 mg tablet 10 mg PO DAILY Qty: 30 5RF topiramate 50 mg tablet See Rx Instructions .ROUTE .COMPLEX Qty: 60 5RF Dose Instruction: TAKE 1 TABLET BY MOUTH TWO TIMES A DAY FOR CHRONIC PAIN Rx Instructions: TAKE 1 TABLET BY MOUTH TWO TIMES A DAY FOR CHRONIC PAIN levothyroxine 175 mcg capsule 175 mcg PO DAILY Qty: 90 3RF Jardiance 25 mg tablet 25 mg PO DAILY Qty: 60 5RF bupropion HCl 200 mg tablet sustained-release 12 hr See Rx Instructions .ROUTE .COMPLEX Qty: 30 1RF Dose Instruction: TAKE 1 TABLET BY MOUTH EVERY MORNING FOR mental health Rx Instructions: TAKE 1 TABLET BY MOUTH EVERY MORNING FOR mental health ondansetron 8 mg tablet,disintegrating 8 mg translingual Q8H PRN (Reason: nausea and vomiting) Qty: 60 1RF Victoza 3-Cristian 0.6 mg/0.1 mL (18 mg/3 mL) pen injector 1.8 mg SUBCUT DAILY Qty: 9 5RF Rx Instructions: 1.8 mg (0.3ml) daily docusate sodium 250 mg capsule 250 mg PO TID Discharge Orders: Discharge ED (Routine); Ordered 12/24/22 Ordered By: Sadiq New Referrals: Beck Sellers MD [Primary Care Provider] - Discharge Diet: Regular Discharge Activity: Increase activity as tolerated Patient Instructions: Knee Pain (ED), Degenerative Disc Disease (ED) Activity Restrictions/Additional Instructions: Follow-up with medical provider as directed in the next 5 to 7 days for reevaluation. Use crutches to help with ambulation. Take medications as prescribed. Return to the ER or your medical provider if condition worsens. Please read and understand discharge instructions. Thank you for choosing [facility] for your healthcare needs today. Please realize this is an emergency room and that we are providing you with a medical screening exam and this may not be complete and all inclusive of all the testing and or work up that you may need to determine your ailment or severity of your illness. It is very important that you follow up as instructed or that you return to the Emergency Department should you have concerns or if your condition changes or worsens in any way. Coding Level of Care Code ED Oriental Rug Stretcher for Ike Gannon
--- NOTE | 2022-12-24 12:08 | PC.NURSE ---
PT STATES SHE TOOK 3000MG OF TYLENOL LAST NIGHT
[2022-12-24 12:17] VITALS: RESP 16
[2022-12-24] MEDS: oxyCODONE 5 mg IR Tab/Cap PO (12:17)
[2022-12-24 13:16] VITALS: BP 137/87; PULSE 83; RESP 13; O2SAT 100
== END 2022-12-24 13:16 | disposition home or self-care (01) ==
PROVIDERS: Emergency Provider Physician Assistant; PCP Family Medicine Adult Medicine
DX: M25.561 Pain in right knee (principal); M51.36 Other intervertebral disc degeneration, lumbar region; Z87.891 Personal history of nicotine dependence; E11.22 Type 2 diabetes mellitus with diabetic chronic kidney disease; I12.9 Hypertensive chronic kidney disease with stage 1 through stage 4 chronic kidney disease, or unspecified chronic kidney disease; N18.30 Chronic kidney disease, stage 3 unspecified; E78.5 Hyperlipidemia, unspecified; Z85.850 Personal history of malignant neoplasm of thyroid
CPT/HCPCS: 72100; 73562; 99283; E0114

== ENCOUNTER → 2023-02-22 14:08 | Outpatient (BNVA) | payer OTHER, SELFPAY | PROVIDERS: PCP Family Medicine Adult Medicine; Visit Provider Family Medicine Adult Medicine | DX: K92.1 Melena (principal); K92.2 Gastrointestinal hemorrhage, unspecified | CPT/HCPCS: 85025 ==

== ENCOUNTER 2023-06-02 14:51 | Emergency (ER) | payer BC, MEDICAID, SELFPAY ==
[2023-06-02 14:55] VITALS: BP 131/85; PULSE 88; RESP 17; O2SAT 100; BMI 23.8
[2023-06-02 16:33] LABS: Basophils % 0.4 %; Eosinophils % 0.2 %; Hematocrit 43.2 % (36-47); Lymphocytes # 0.8 10^3/uL (0.8-4.8); Lymphocytes % 7.2 %; Mean Corpuscular HGB Conc 30.8 g/dL (30-55); Mean Corpuscular Hemoglobin 27.9 pg (27-33); Mean Corpuscular Volume 90.8 fl (85-98); Mean Platelet Volume 11.8 fL (7.4-10.4); Monocytes # 0.5 10^3/uL (0.2-0.9); Monocytes % 4.7 %; Neutrophils # 9.51 10^3/uL (1.8-7.7); Neutrophils % 87.3 %; Nucleated Red Blood Cells % 0 %; Platelet Count 214 10^3/cmm (157-399); Red Blood Count 4.76 10^6/uL (3.85-5.65); Red Cell Distribution Width 13.3 % (12.1-15.1); White Blood Count 10.88 10^3/uL (3.29-11.43)
--- NOTE | 2023-06-02 16:48 | XRR_ITS ---
PROCEDURE INFORMATION: Exam: XR Chest Exam date and time: 06/02/2023 5:13 PM Age: 53 years old Clinical indication: Cough and dyspnea; Additional info: Dyspnea/cough TECHNIQUE: Imaging protocol: Radiologic exam of the chest. Views: 1 view. COMPARISON: CR XR chest 1V portable [id number] 09/22/2022 9:59 AM FINDINGS: Lungs: Unremarkable. No consolidation. Pleural spaces: Unremarkable. No pleural effusion. No pneumothorax. Heart/Mediastinum: Unremarkable. No cardiomegaly. Bones/joints: Unremarkable. XR/XR chest 1V portable [id number] IMPRESSION: No acute findings.
--- NOTE | 2023-06-02 16:50 | ECG_ITS ---
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 Measurements Intervals [place] Rate: 87 P: 68 [place]: 150 QRS: 36 QRSD: 85 T: 63 QT: 342 QTc: 413 Interpretive Statements SINUS RHYTHM POSSIBLE LEFT ATRIAL ENLARGEMENT [-0.1mV P-WAVE IN V1/V2] Compared to ECG 09/22/2022 09:59:02 No significant changes Electronically Signed On 06-02-2023 20:28:00 CDT by Vonda Knapp M.D. [id number]
[2023-06-02 16:57] VITALS: BP 153/91; PULSE 94; RESP 18; O2SAT 100
[2023-06-02 16:58] LABS: Alanine Aminotransferase 12 U/L (0-33); Alkaline Phosphatase 100 U/L (35-105); Aspartate Amino Transferase 16 U/L (0-32); Blood Urea Nitrogen 37 mg/dL (6-20); Calcium 10.1 mg/dL (8.5-10.5); Carbon Dioxide 24 mmol/L (22-29); Chloride 104 mmol/L (98-107); Globulin 2.5 g/dL (1.3-4.6); Glomerular Filtration Rate 39.3 mL/min (90-130); Glucose 134 mg/dL (65-115); Osmolality Calculated 301 mOsm/kg (285-295); Sodium 140 mmol/L (136-145); Total Bilirubin 0.3 mg/dL (0.15-1.2); Total Protein 7.5 g/dL (6.6-8.7)
[2023-06-02 17:04] VITALS: BP 152/90; PULSE 83; RESP 18; O2SAT 99
--- NOTE | 2023-06-02 17:07 | W.ED.CHESTPA ---
Documented by User: Allen Goddard DO 06/03/23 05:37 HPI - Chest Pain General: Chief Complaint: Chest Pain Stated Complaint: chest pain, SOB Time Seen by Provider: 06/02/23 16:48 Source: patient Mode of arrival: ambulatory History of Present Illness: 53-year-old female who presents emergency room complaining of chest pain rating to the neck and jaw. Pressure sensation accompanied by shortness of breath. She has not noticed anything exacerbates or relieves it. Symptoms began yesterday have been intermittent. She has not had any previous history of heart disease no previous stress test or angiograms such. No known history of chronic respiratory disease patient is diabetic is a former smoker but quit several decades ago. No recent fever sweats or chills cough or congestion. MD complaint: chest pain Timing of current episode: episodic Pain location: substernal Pain radiation: neck and jaw/teeth Quality: tightness and heaviness Relieving factors: nothing Exacerbating factors: nothing Associated symptoms: Deny abdominal pain, dyspnea, fever(s) or palpitations Treatment prior to arrival: none Review of Systems Const: Denies: fever(s) or chills Card: Reports: chest pain; Denies: palpitations, irregular heart rhythm or edema Resp: Denies: dyspnea, productive cough or non-productive cough GI: Denies: abdominal pain : Denies: dysuria, urinary frequency or urinary urgency Musc: Denies: neck pain or back pain Skin/Breast: Denies: rash PFSH ED PFSH: Medical History Abdominal pain determined by examination Allergic rhinitis due to allergen Anxiety and depression Chronic low back pain with bilateral sciatica CKD (chronic kidney disease) stage 3, GFR 30-59 ml/min Diabetes type 2, controlled Dyslipidemia (high LDL; low HDL) GERD (gastroesophageal reflux disease) GI bleeding Hx of thyroid cancer Hypertension Hypothyroidism, postsurgical thyroidectomy Aug 2020 Larynx neoplasm Locking of right knee Melena Memory changes Ovarian mass, left CT on 06/20/2022 with 6 cm x 8 cm x 7.3 cm left cystic mass, surg 07/06/2022 Psychiatric care Sleeping excessive Vitamin B 12 deficiency Surgical History H/O dilation and curettage x7 H/O laparoscopy H/O ultrasound guided needle biopsy muscle and skin biopsies History of colon resection 2014 resection after a history of 32 benign colon polyps. History of throat surgery Hx of section Hx of hernia repair Hx of hysterectomy Status post removal of thyroid nodule Family History Mother Chronic kidney disease (CKD) Hyperlipidemia Grandmother CAD (coronary artery disease) maternal Hyperlipidemia maternal Heart disease maternal Colon cancer maternal, 60's Grandfather Diabetes paternal Family/Other Diabetes maternal great aunt Hyperlipidemia maternal side Denies family history of Ovarian cancer Breast cancer Anesthesia complication Bleeding disorder Hypertension Uterine cancer Thyroid disease Stroke Social History Smoking and tobacco/nicotine status: former use of tobacco/nicotine Alcohol intake: never Substance/Drug Use: never Adopted: No Caregiver/support person: No Lives independently: Yes Marital status: Current occupational status: disabled Current gender identity: Female Physical Exam Const: COMMON NORMALS: no acute distress GENERAL APPEARANCE: cooperative and comfortable ORIENTATION/CONSCIOUSNESS: Yes awake, Yes oriented to person, Yes oriented to place and Yes oriented to time HENMT: COMMON NORMALS: normocephalic, atraumatic and hearing grossly normal bilaterally HEAD & SCALP: normocephalic and atraumatic Resp: COMMON NORMALS: normal respiratory effort, No retractions, No use of accessory muscles and clear to auscultation bilaterally AUSCULTATION: clear to auscultation bilaterally Cardio: COMMON NORMALS: regular rate, regular rhythm and No murmurs present (Cardio) RATE: regular rate RHYTHM: regular rhythm GI: COMMON NORMALS: Soft to palpation and No hepatosplenomegaly present AUSCULTATION: Yes normoactive bowel sounds PALPATION: Yes Soft to palpation, No Tenderness to palpation present (GI), No Guarding due to palpation present (GI) and Yes No hepatosplenomegaly present Extremity: COMMON NORMALS: normal to inspection, capillary refill normal, no clubbing, cyanosis or edema, no calf tenderness and no pedal edema Neuro: SENSORIUM/ORIENTATION: Yes oriented to person, Yes oriented to place and Yes oriented to time Skin: COMMON NORMALS: no rashes or lesions noted GENERAL SKIN EXAM: no rashes or lesions noted Course Vital Signs: Vital signs: Vital Signs Pulse Rate 90 06/02/23 19:23 Respiratory Rate 21 H 06/02/23 19:23 Blood Pressure 126/84 06/02/23 19:23 Pulse Oximetry 97 06/02/23 19:23 Oxygen Delivery Me thod Room Air 06/02/23 18:41 MDM - Chest Pain Medical Decision Making Care signed out to Dr. Jamison at change of shift. See final notes for diagnosis and disposition. Patient presents here with chest pains atypical in nature troponins are normal here she has no signs of acute coronary syndrome no signs of dissection or pulmonary embolism. She is stable for discharge she is to follow-up with PCP and return if worsening she understands agrees to plan. Lab Data 06/02/23 16:23 06/02/23 16:23 Radiology Impressions Chest X-Ray 06/02/23 16:48 IMPRESSION: No acute findings. Laboratory Results WBC 10.88 10^3/uL (3.29-11.43) 06/02/23 16: RBC 4.76 10^6/uL (3.85-5.65) 06/02/23 16: Hgb 13.30 g/dL (11.27-16.99) 06/02/23 16: Hct 43.2 % (36-47) 06/02/23 16: MCV 90.8 fl (85-98) 06/02/23 16: MCH 27.9 pg (27-33) 06/02/23 16: MCHC 30.8 g/dL (30-55) 06/02/23 16: RDW 13.3 % (12.1-15.1) 06/02/23 16: Plt Count 214 10^3/cmm (157-399) 06/02/23 16: MPV 11.8 fL (7.4-10.4) H 06/02/23 16: Neut % (Auto) 87.3 % 06/02/23 16: Lymph % (Auto) 7.2 % 06/02/23 16: [place] % (Auto) 4.7 % 06/02/23 16: Eos % (Auto) 0.2 % 06/02/23 16: Baso % (Auto) 0.4 % 06/02/23 16: Neut # (Auto) 9.51 10^3/uL (1.8-7.7) H 06/02/23 16:23 Lymph # (Auto) 0.8 10^3/uL (0.8-4.8) 06/02/23 16: [place] # (Auto) 0.5 10^3/uL (0.2-0.9) 06/02/23 16:23 Eos # (Auto) 0.0 10^3/uL (0.0-0.8) 06/02/23 16: Baso # (Auto) 0.0 10^3/uL (0.0-0.1) 06/02/23 16: Nucleated RBC % (auto) 0 % 06/02/23 16: Nucleated RBCs # 0.0 /100WBC 06/02/23 16: Sodium 140 mmol/L (136-145) 06/02/23 16: Potassium 4.6 mmol/L (3.5-5.1) 06/02/23 16: Chloride 104 mmol/L (98-107) 06/02/23 16: Carbon Dioxide 24 mmol/L (22-29) 06/02/23 16: Anion Gap 16.6 (5-19) 06/02/23 16: BUN 37 mg/dL (6-20) H 06/02/23 16: Creatinine 1.4 mg/dL (0.5-0.9) H 06/02/23 16:23 GFR Calculation 39.3 mL/min (90-130) L 06/02/23 16: Glucose 134 mg/dL (65-115) H 06/02/23 16: Calculated Osmolality 301 mOsm/kg (285-295) H 06/02/23 16:23 Calcium 10.1 mg/dL (8.5-10.5) 06/02/23 16:23 Total Bilirubin 0.3 mg/dL (0.15-1.2) 06/02/23 16: AST 16 U/L (0-32) 06/02/23 16:23 ALT 12 U/L (0-33) 06/02/23 16:23 Alkaline Phosphatase 100 U/L (35-105) 06/02/23 16: Troponin T Gen 5 ng/L Cancelled 10/13/23 16:23 Troponin T Baseline 12 ng/L (0-10) H 06/02/23 16:23 Troponin T 120 Minute 11.31 ng/L (0-10) H 06/02/23 18:24 Delta Troponin T -0.69 ABS# (0-10) L 06/02/23 18:24 Total Protein 7.5 g/dL (6.6-8.7) 06/02/23 16:23 Albumin 5.0 g/dL (3.5-5.2) 06/02/23 16:23 Globulin 2.5 g/dL (1.3-4.6) 06/02/23 16:23 Discharge Plan Discharge Patient Disposition: Home Clinical Impression: Chest pain Condition: Stable Prescriptions: No Action doxycycline hyclate 100 mg capsule 100 mg PO BID Qty: 90 1RF clotrimazole-betamethasone 1-0.05 % cream 1 applic topical BID Qty: 45 0RF buspirone 15 mg tablet 15 mg PO QID PRN (Reason: anxiety) 30 Days Qty: 120 5RF sertraline 200 mg capsule 200 mg PO DAILY 30 Days Qty: 30 5RF vitamin E (dl, acetate) 45 mg (100 unit) capsule 45 mg PO DAILY multivitamin Tablet 1 tab PO DAILY tramadol 50 mg tablet 50 mg PO BID PRN (Reason: pain) 14 Days Qty: 28 0RF All Day Allergy (cetirizine) 10 mg capsule 10 mg PO DAILY PRN (Reason: allergy symptoms) Qty: 90 2RF fluticasone propionate [Flovent HFA] 44 mcg/actuation HFA aerosol inhaler 2 puff inhalation BID Qty: 10.6 3RF Rx Instructions: administer with spacer levothyroxine 175 mcg capsule 175 mcg PO DAILY Qty: 90 3RF lisinopril 10 mg tablet 10 mg PO DAILY Qty: 30 5RF omeprazole 40 mg capsule,delayed release(DR/EC) 40 mg PO BID Qty: 60 5RF baclofen 10 mg tablet 10 mg PO TID Qty: 90 5RF (DME) One touch test strips Ultra 2 See Rx Instructions .Route .MEDSUPPLY Qty: 1 11RF Rx Instructions: As directed mecobalamin (vitamin B12) 10,000 mcg recon soln 1,000 mcg SUBCUT .monthly 300 Days Qty: 1 1RF Jardiance 25 mg tablet 25 mg PO DAILY Qty: 60 5RF ondansetron 8 mg tablet,disintegrating 8 mg translingual Q8H PRN (Reason: nausea and vomiting) Qty: 60 1RF Victoza 3-Cristian 0.6 mg/0.1 mL (18 mg/3 mL) pen injector 1.8 mg SUBCUT DAILY Qty: 9 5RF Rx Instructions: 1.8 mg (0.3ml) daily topiramate 50 mg tablet See Rx Instructions .ROUTE .COMPLEX Qty: 60 5RF Dose Instruction: TAKE 1 TABLET BY MOUTH TWO TIMES A DAY FOR CHRONIC PAIN Rx Instructions: TAKE 1 TABLET BY MOUTH TWO TIMES A DAY FOR CHRONIC PAIN tramadol 50 mg tablet 50 mg PO BID PRN (Reason: pain) 30 Days Qty: 60 1RF Rx Instructions: Fill prescription after the first 14 days of previous prescription. docusate sodium 250 mg capsule 250 mg PO TID Discharge Orders: Discharge ED (Routine); Ordered 06/02/23 Ordered By: José Luis Jamison Referrals: Beck Sellers MD [Primary Care Provider] - 1-3 days Discharge Diet: Advance as tolerated Discharge Activity: Resume usual activity Patient Instructions: Chest Pain (ED) Coding Level of Care Code ED Special Effects Person for Chg Fwd Documented by User: José Luis Jamison MD 06/02/23 19:23 HPI - Chest Pain General: Chief Complaint: Chest Pain Stated Complaint: chest pain, SOB Time Seen by Provider: 06/02/23 16:48 PFSH ED PFSH: Medical History Abdominal pain determined by examination Allergic rhinitis due to allergen Anxiety and depression Chronic low back pain with bilateral sciatica CKD (chronic kidney disease) stage 3, GFR 30-59 ml/min Diabetes type 2, controlled Dyslipidemia (high LDL; low HDL) GERD (gastroesophageal reflux disease) GI bleeding Hx of thyroid cancer Hypertension Hypothyroidism, postsurgical thyroidectomy Aug 2020 Larynx neoplasm Locking of right knee Melena Memory changes Ovarian mass, left CT on 06/20/2022 with 6 cm x 8 cm x 7.3 cm left cystic mass, surg 07/06/2022 Psychiatric care Sleeping excessive Vitamin B 12 deficiency Surgical History H/O dilation and curettage x7 H/O laparoscopy H/O ultrasound guided needle biopsy muscle and skin biopsies History of colon resection 2014 resection after a history of 32 benign colon polyps. History of throat surgery Hx of section Hx of hernia repair Hx of hysterectomy Status post removal of thyroid nodule Family History Mother Chronic kidney disease (CKD) Hyperlipidemia Grandmother CAD (coronary artery disease) maternal Hyperlipidemia maternal Heart disease maternal Colon cancer maternal, 60's Grandfather Diabetes paternal Family/Other Diabetes maternal great aunt Hyperlipidemia maternal side Denies family history of Ovarian cancer Breast cancer Anesthesia complication Bleeding disorder Hypertension Uterine cancer Thyroid disease Stroke Social History Smoking and tobacco/nicotine status: former use of tobacco/nicotine Alcohol intake: never Substance/Drug Use: never Adopted: No Caregiver/support person: No Lives independently: Yes Marital status: Current occupational status: disabled Current gender identity: Female Course Vital Signs: Vital signs: Vital Signs Pulse Rate 90 06/02/23 19:23 Respiratory Rate 21 H 06/02/23 19:23 Blood Pressure 126/84 06/02/23 19:23 Pulse Oximetry 97 06/02/23 19:23 Oxygen Delivery Me thod Room Air 06/02/23 18:41 MDM - Chest Pain Medical Decision Making Patient presents here with chest pains atypical in nature troponins are normal here she has no signs of acute coronary syndrome no signs of dissection or pulmonary embolism. She is stable for discharge she is to follow-up with PCP and return if worsening she understands agrees to plan. Medical Records I reviewed the patient's medical records. Lab Data I reviewed the patient's lab results. 06/02/23 16:23 06/02/23 16:23 Radiology Impressions Chest X-Ray 06/02/23 16:48 IMPRESSION: No acute findings. Laboratory Results WBC 10.88 10^3/uL (3.29-11.43) 06/02/23 16: RBC 4.76 10^6/uL (3.85-5.65) 06/02/23 16: Hgb 13.30 g/dL (11.27-16.99) 06/02/23 16: Hct 43.2 % (36-47) 06/02/23 16: MCV 90.8 fl (85-98) 06/02/23 16: MCH 27.9 pg (27-33) 06/02/23 16: MCHC 30.8 g/dL (30-55) 06/02/23 16: RDW 13.3 % (12.1-15.1) 06/02/23: Plt Count 214 10^3/cmm (157-399) 06/02/23 16: MPV 11.8 fL (7.4-10.4) H 06/02/23 16: Neut % (Auto) 87.3 % 06/02/23 16: Lymph % (Auto) 7.2 % 06/02/23 16: [place] % (Auto) 4.7 % 06/02/23 16: Eos % (Auto) 0.2 % 06/02/23: Baso % (Auto) 0.4 % 06/02/23: Neut # (Auto) 9.51 10^3/uL (1.8-7.7) H 06/02/23 16: Lymph # (Auto) 0.8 10^3/uL (0.8-4.8) 06/02/23 16: [place] # (Auto) 0.5 10^3/uL (0.2-0.9) 06/02/23: Eos # (Auto) 0.0 10^3/uL (0.0-0.8) 06/02/23: Baso # (Auto) 0.0 10^3/uL (0.0-0.1) 06/02/23 16: Nucleated RBC % (auto) 0 % 06/02/23 16: Nucleated RBCs # 0.0 /100WBC 06/02/23 16: Sodium 140 mmol/L (136-145) 06/02/23 16:23 Potassium 4.6 mmol/L (3.5-5.1) 06/02/23 16:23 Chloride 104 mmol/L (98-107) 06/02/23 16: Carbon Dioxide 24 mmol/L (22-29) 06/02/23 16:23 Anion Gap 16.6 (5-19) 06/02/23 16:23 BUN 37 mg/dL (6-20) H 06/02/23 16:23 Creatinine 1.4 mg/dL (0.5-0.9) H 06/02/23 16:23 GFR Calculation 39.3 mL/min (90-130) L 06/02/23 16: Glucose 134 mg/dL (65-115) H 06/02/23 16: Calculated Osmolality 301 mOsm/kg (285-295) H 06/02/23 16:23 Calcium 10.1 mg/dL (8.5-10.5) 06/02/23 16: Total Bilirubin 0.3 mg/dL (0.15-1.2) 06/02/23 16: AST 16 U/L (0-32) 06/02/23 16:23 ALT 12 U/L (0-33) 06/02/23 16:23 Alkaline Phosphatase 100 U/L (35-105) 06/02/23 16:23 Troponin T Gen 5 ng/L Cancelled 06/02/23 16:23 Troponin T Baseline 12 ng/L (0-10) H 06/02/23 16: Troponin T 120 Minute 11.31 ng/L (0-10) H 06/02/23 18:24 Delta Troponin T -0.69 ABS# (0-10) L 06/02/23 18:24 Total Protein 7.5 g/dL (6.6-8.7) 06/02/23 16: Albumin 5.0 g/dL (3.5-5.2) 06/02/23 16: Globulin 2.5 g/dL (1.3-4.6) 06/02/23 16:23 All radiology interpretation(s) finalized by discharge Discharge Plan Discharge Patient Disposition: Home Clinical Impression: Chest pain Condition: Stable Prescriptions: No Action doxycycline hyclate 100 mg capsule 100 mg PO BID Qty: 90 1RF clotrimazole-betamethasone 1-0.05 % cream 1 applic topical BID Qty: 45 0RF buspirone 15 mg tablet 15 mg PO QID PRN (Reason: anxiety) 30 Days Qty: 120 5RF sertraline 200 mg capsule 200 mg PO DAILY 30 Days Qty: 30 5RF vitamin E (dl, acetate) 45 mg (100 unit) capsule 45 mg PO DAILY multivitamin Tablet 1 tab PO DAILY tramadol 50 mg tablet 50 mg PO BID PRN (Reason: pain) 14 Days Qty: 28 0RF All Day Allergy (cetirizine) 10 mg capsule 10 mg PO DAILY PRN (Reason: allergy symptoms) Qty: 90 2RF fluticasone propionate [Flovent HFA] 44 mcg/actuation HFA aerosol inhaler 2 puff inhalation BID Qty: 10.6 3RF Rx Instructions: administer with spacer levothyroxine 175 mcg capsule 175 mcg PO DAILY Qty: 90 3RF lisinopril 10 mg tablet 10 mg PO DAILY Qty: 30 5RF omeprazole 40 mg capsule,delayed release(DR/EC) 40 mg PO BID Qty: 60 5RF baclofen 10 mg tablet 10 mg PO TID Qty: 90 5RF (DME) One touch test strips Ultra 2 See Rx Instructions .Route .MEDSUPPLY Qty: 1 11RF Rx Instructions: As directed mecobalamin (vitamin B12) 10,000 mcg recon soln 1,000 mcg SUBCUT .monthly 300 Days Qty: 1 1RF Jardiance 25 mg tablet 25 mg PO DAILY Qty: 60 5RF ondansetron 8 mg tablet,disintegrating 8 mg translingual Q8H PRN (Reason: nausea and vomiting) Qty: 60 1RF Victoza 3-Cristian 0.6 mg/0.1 mL (18 mg/3 mL) pen injector 1.8 mg SUBCUT DAILY Qty: 9 5RF Rx Instructions: 1.8 mg (0.3ml) daily topiramate 50 mg tablet See Rx Instructions .ROUTE .COMPLEX Qty: 60 5RF Dose Instruction: TAKE 1 TABLET BY MOUTH TWO TIMES A DAY FOR CHRONIC PAIN Rx Instructions: TAKE 1 TABLET BY MOUTH TWO TIMES A DAY FOR CHRONIC PAIN tramadol 50 mg tablet 50 mg PO BID PRN (Reason: pain) 30 Days Qty: 60 1RF Rx Instructions: Fill prescription after the first 14 days of previous prescription. docusate sodium 250 mg capsule 250 mg PO TID Discharge Orders: Discharge ED (Routine); Ordered 06/02/23 Ordered By: José Luis Jamison Referrals: Beck Sellers MD [Primary Care Provider] - 1-3 days Discharge Diet: Advance as tolerated Discharge Activity: Resume usual activity Patient Instructions: Chest Pain (ED) Coding Level of Care Code ED Special Effects Person for Ike Gannon
[2023-06-02 17:09] LABS: Troponin(5th) Baseline 12 ng/L (0-10)
[2023-06-02 17:10] LABS: Anion Gap 16.6 (5-19); Potassium 4.6 mmol/L (3.5-5.1)
[2023-06-02 18:41] VITALS: BP 126/84; PULSE 90; RESP 21; O2SAT 97
[2023-06-02 18:50] LABS: Troponin 5 2HR 11.31 ng/L (0-10)
--- NOTE | 2023-06-02 18:51 | ECG_ITS ---
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 Measurements Intervals [place] Rate: 90 P: 64 SC: 152 QRS: 53 QRSD: 86 T: 64 QT: 336 QTc: 412 Interpretive Statements SINUS RHYTHM POSSIBLE LEFT ATRIAL ENLARGEMENT [-0.1mV P-WAVE IN V1/V2] Compared to ECG 06/02/2023 14:56:11 No significant changes Electronically Signed On 06-02-2023 20:28:14 CDT by Vonda Knapp M.D. [id number]
[2023-06-02 18:53] LABS: Troponin 5 2HR Delta -0.69 ABS# (0-10)
[2023-06-02 19:23] VITALS: BP 126/84; PULSE 90; RESP 21; O2SAT 97
== END 2023-06-02 19:26 | disposition home or self-care (01) ==
PROVIDERS: Family Medicine; Nurse Practitioner Family; Emergency Provider Emergency Medicine; PCP Family Medicine Adult Medicine
DX: R07.9 Chest pain, unspecified (principal); Z87.891 Personal history of nicotine dependence; E11.22 Type 2 diabetes mellitus with diabetic chronic kidney disease; I12.9 Hypertensive chronic kidney disease with stage 1 through stage 4 chronic kidney disease, or unspecified chronic kidney disease; N18.30 Chronic kidney disease, stage 3 unspecified; E78.5 Hyperlipidemia, unspecified; Z85.850 Personal history of malignant neoplasm of thyroid; Z85.21 Personal history of malignant neoplasm of larynx
CPT/HCPCS: 36415; 71045; 80053; 84484; 85025; 93005; 99285

== ENCOUNTER → 2023-06-29 13:11 | Outpatient (BNVA) | payer OTHER, SELFPAY | PROVIDERS: PCP Family Medicine Adult Medicine; Visit Provider Nurse Practitioner Psychiatric/Mental Health | DX: F41.1 Generalized anxiety disorder (principal) | CPT/HCPCS: 80061; 83036 ==

== ENCOUNTER → 2023-11-22 10:32 | Outpatient (BNVA) | payer BC, MEDICAID, SELFPAY ==
[2023-07-18 15:11] VITALS: BP 116/78; BMI 23.8
== END ==
PROVIDERS: PCP Family Medicine Adult Medicine; Visit Provider Family Medicine Adult Medicine
DX: E89.0 Postprocedural hypothyroidism (principal); I10 Essential (primary) hypertension; E11.42 Type 2 diabetes mellitus with diabetic polyneuropathy
CPT/HCPCS: 80053; 83036; 84443; 85025

== ENCOUNTER → 2024-05-07 11:06 | Outpatient (BNVA) | payer MEDICAID, SELFPAY ==
[2024-02-26 08:32] VITALS: BP 116/78; BMI 23.8
== END ==
PROVIDERS: PCP Family Medicine Adult Medicine
DX: R05.9 Cough, unspecified (principal)
CPT/HCPCS: 87426

== ENCOUNTER → 2024-07-09 12:08 | Outpatient (BNVA) | payer MEDICAID, SELFPAY ==
[2024-02-26 08:32] VITALS: BP 116/78; BMI 23.8
== END ==
PROVIDERS: PCP Family Medicine Adult Medicine; Visit Provider Nurse Practitioner Psychiatric/Mental Health
DX: F41.1 Generalized anxiety disorder (principal); F41.9 Anxiety disorder, unspecified
CPT/HCPCS: 80061; 83036

== ENCOUNTER → 2024-07-16 11:29 | Outpatient (BNVA) | payer BC, SELFPAY ==
[2024-07-11 11:44] VITALS: BP 130/71; BMI 21.6
== END ==
PROVIDERS: PCP Family Medicine Adult Medicine
DX: E11.42 Type 2 diabetes mellitus with diabetic polyneuropathy (principal); E89.0 Postprocedural hypothyroidism
CPT/HCPCS: 80053; 83036; 84439; 84443; 85025

== ENCOUNTER → 2024-09-12 14:21 | Outpatient (BNVA) | payer BC, SELFPAY ==
[2024-07-11 11:44] VITALS: BP 130/71; BMI 21.6
== END ==
PROVIDERS: PCP Family Medicine; Visit Provider Family Medicine
DX: E11.42 Type 2 diabetes mellitus with diabetic polyneuropathy (principal)
CPT/HCPCS: 82043

== ENCOUNTER → 2024-11-22 08:47 | Outpatient (BNVA) | payer BC, SELFPAY ==
[2024-07-11 11:44] VITALS: BP 130/71; BMI 21.6
== END ==
PROVIDERS: PCP Family Medicine; Visit Provider Family Medicine
DX: E78.5 Hyperlipidemia, unspecified (principal); I10 Essential (primary) hypertension; E11.42 Type 2 diabetes mellitus with diabetic polyneuropathy; N18.32 Chronic kidney disease, stage 3b
CPT/HCPCS: 80053; 80061; 83036; 85025

== ENCOUNTER → 2025-01-17 11:41 | Outpatient (BNVA) | payer BC, SELFPAY ==
[2024-07-11 11:44] VITALS: BP 130/71; BMI 21.6
== END ==
PROVIDERS: PCP Family Medicine; Visit Provider Family Medicine
DX: E89.0 Postprocedural hypothyroidism (principal)
CPT/HCPCS: 84432; 84439; 84443; 86800

== ENCOUNTER 2025-01-30 13:39 | Outpatient (CLI) | payer MEDICARE, MEDICAID, SELFPAY ==
[2024-07-11 11:44] VITALS: BP 130/71; BMI 21.6
--- NOTE | 2025-01-30 13:40 | MM_ITS ---
WS: [id number] BILATERAL 3D TOMOSYNTHESIS DIGITAL SCREENING MAMMOGRAPHY WITH CAD CLINICAL INFORMATION: screening HISTORY: Screening mammogram. No current complaints. COMPARISON: None. TECHNIQUE: Bilateral CC and MLO views. FINDINGS: Scattered fibroglandular densities bilaterally. No suspicious focal mass, asymmetry, calcifications, or architectural distortion. No evidence of malignancy. Tiny punctate calcification RIGHT breast. MM/MM scr tomosynthesis [id number] IMPRESSION: DENSITY: There are scattered areas of fibroglandular density. BI-RADS: 2 - Benign. FOLLOW UP: 1 Year Follow-up Recommend return to annual screening mammography.
== END 2025-01-30 13:40 | disposition home or self-care (01) ==
LOC: RAD 13:43
PROVIDERS: PCP Family Medicine; Visit Provider Family Medicine
DX: Z12.31 Encounter for screening mammogram for malignant neoplasm of breast (principal); M54.42 Lumbago with sciatica, left side; M54.41 Lumbago with sciatica, right side; G89.29 Other chronic pain; R92.323 Mammographic fibroglandular density, bilateral breasts
CPT/HCPCS: 77063; 77067

== ENCOUNTER → 2025-03-18 11:55 | Outpatient (BNVA) | payer MEDICARE, MEDICAID, SELFPAY ==
[2024-07-11 11:44] VITALS: BP 130/71; BMI 21.6
== END ==
PROVIDERS: PCP Family Medicine; Visit Provider Family Medicine
DX: E11.42 Type 2 diabetes mellitus with diabetic polyneuropathy (principal); E89.0 Postprocedural hypothyroidism
CPT/HCPCS: 80053; 83036; 84439; 84443

== ENCOUNTER → 2025-07-21 13:38 | Outpatient (BNVA) | payer MEDICARE, MEDICAID, SELFPAY ==
[2024-07-11 11:44] VITALS: BP 130/71; BMI 21.6
== END ==
PROVIDERS: PCP Family Medicine; Visit Provider Family Medicine
DX: Z11.4 Encounter for screening for human immunodeficiency virus [HIV] (principal); Z11.59 Encounter for screening for other viral diseases; E11.42 Type 2 diabetes mellitus with diabetic polyneuropathy
CPT/HCPCS: 80053; 83036; 86803; 87389